=== PATIENT | female | born 1935 | race Caucasian/White ===

== ENCOUNTER 2023-03-12 21:07 | Inpatient (IN) | payer MEDICARE ==
[~2023-03-12] VITALS: Ht 167.6 cm; Wt 92.8 kg
[2023-03-12 21:14] VITALS: BP_SYST 97; PULSE 144; RESP 30; TEMP 97.8; O2SAT 98
--- NOTE | 2023-03-12 21:14 | NUR ---
Placed in room 08 . Placed on color television console monitor, blood pressure machine and pulse oximeter. To gown for exam. Side rails up. Report given to ARA MEAD
--- NOTE | 2023-03-12 21:21 | NUR ---
Patient arrived by ambulance from home. Patient was found on toilet. She had trouble breathing with audible wheezes according to paramedics. Patient called ambulance herself. Paramedics gave 2 amps albuterol. Placed on monitoring coordinator and was found to be Tachycardia with A. Fibrillation. Patient has PMH: HLD, COPD (20 years but was told she doesn't have it). Patient alert and oriented x4. On oxygen supplement. Will continue to monitor.
[2023-03-12] MEDS ORDERED: NACL 0.9% 1,000 ML IV ONE (21:45)
[2023-03-12 21:57] LABS: BASOPHILS # (AUTO) 0.1 K/uL (0.0-0.2); EOSINOPHILS # (AUTO) 0.1 K/uL (0.0-0.4); EOSINOPHILS % (AUTO) 1.6 % (0.0-4.0); HEMATOCRIT 36.2 % (36-48); HEMOGLOBIN 11.8 g/dL (12.0-16.0); LYMPHOCYTES # (AUTO) 1.2 K/uL (1.0-5.5); LYMPHOCYTES % (AUTO) 13.5 % (20.5-51.5); MEAN CORPUSCULAR HEMOGLOBIN 30 pg (27-31); MEAN CORPUSCULAR HGB CONC 33 % (32-36); MEAN CORPUSCULAR VOLUME 91 fL (79.0-98.0); MONOCYTES # (AUTO) 1.2 K/uL (0.0-1.0); MONOCYTES % (AUTO) 13.5 % (1.7-9.3); NEUTROPHILS % (AUTO) 70.4 % (40.0-70.0); PLATELET COUNT (AUTO) 252 K/uL (130-430); RED BLOOD CELL COUNT(AUTO) 3.99 MIL/uL (4.2-6.2); RED CELL DISTRIBUTION WIDTH 16.1 % (9.0-15.0); WHITE BLOOD COUNT (AUTO) 8.6 K/uL (4.8-10.8)
[2023-03-12 22:05] LABS: ANION GAP 7 (5-15); CALCIUM 8.6 mg/dL (8.4-11.0); CHLORIDE 102 mmol/L (98-107); CREATININE 0.63 mg/dL (0.55-1.30); GLUCOSE 141 mg/dL (70-99); UREA NITROGEN, BLOOD 28 mg/dL (8-21)
[2023-03-12 22:21] LABS: ALANINE AMINOTRANSFERASE 21 U/L (12-78); ALBUMIN 3.3 g/dL (3.4-4.8); ASPARTATE AMINOTRANSFERASE 15 U/L (10-37); TOTAL BILIRUBIN 0.5 mg/dL (0.0-1.0)
[2023-03-12] MEDS ORDERED: methylPREDNISolone SOD SUCC/PF 62.5 MG/ML VIAL IVP ONE (22:30)
[2023-03-12] MEDS ORDERED: METOPROLOL TARTRATE 5 MG/5 ML VIAL IVP ONE (22:45)
[2023-03-12] MEDS ORDERED: IPRATROPIUM/ALBUTEROL SULFATE 3 ML AMPUL.NEB (DUONEB) INH ONE (22:45)
[2023-03-12] MEDS ORDERED: ASPIRIN 325 MG TABLET (ECOTRIN) PO ONE (22:45)
[2023-03-12 23:10] LABS: BILIRUBIN,URINE NEGATIVE (NEGATIVE); CLARITY/URINE CLEAR (CLEAR); COLOR,URINE YELLOW (YELLOW); GLUCOSE,URINE NEGATIVE (NEGATIVE); KETONES,URINE NEGATIVE (NEGATIVE); LEUKOCYTE ESTERASE ,URINE NEGATIVE (NEGATIVE); NITRITE, URINE NEGATIVE (NEGATIVE); PROTEIN URINE NEGATIVE (NEGATIVE); UROBILINOGEN,URINE 0.2 (0.2-1.0)
[2023-03-12 23:13] LABS: BLOOD, URINE TRACE (NEGATIVE)
[2023-03-12 23:31] LABS: BACTERIA,URINE None Seen /HPF (None Seen); RBC,URINE 0-3 /HPF (0-3); WBC,URINE 0-3 /HPF (0-3)
[2023-03-13] VITALS (13 sets, daily range): BP systolic 108–135; PULSE 67–129; RESP 18–20; TEMP 96.8–98; O2SAT 94–97
--- NOTE | 2023-03-13 00:49 | NUR ---
Timur bentleyasha in [facility] - 03/13/23 at 0104 by [id number] placed on cpap
--- NOTE | 2023-03-13 01:05 | NUR ---
Clarified with Dr. Granados. Patient on Bipap.
[2023-03-13] MEDS ORDERED: METOPROLOL TARTRATE 25 MG TABLET PO ONE (01:15)
[2023-03-13] MEDS ORDERED: METOPROLOL TARTRATE 5 MG/5 ML VIAL IVP ONE ×2 (01:15→02:00)
--- NOTE | 2023-03-13 01:24 | NUR ---
Admit bed requested Patient will be admitted to care of . Admitted to TELEMETRY unit. Diagnosis COPD EXACERBATION Inpatient (Yes or No) Y Observation (Yes or No) N Orientation concerns or request close to nursing station (Yes or No) Y Covid Status NEG On vent or bipap BIPAP Isolation requirements N Needs a sitter From Home (Yes or if No enter name of facility) Y Requires Dialysis (Yes or No) N Med Rec Completed (Yes of No) YES
[2023-03-13] MEDS ORDERED: IPRATROPIUM/ALBUTEROL SULFATE 3 ML AMPUL.NEB (DUONEB) INH PRN (01:30)
[2023-03-13] MEDS ORDERED: METOPROLOL TARTRATE 5 MG/5 ML VIAL ONE (02:08)
--- NOTE | 2023-03-13 02:21 | NUR ---
Patient restless and moving around. Patient repositioned and placed on bedside commode and then back to bed. No distress noted,
--- NOTE | 2023-03-13 02:24 | NUR ---
Patient will be admitted to care of ARA Bertrand. Admitted to unit. Will go to room . Belongings list completed. Complete and up to date summary report printed. SBAR report to be given at bedside with opportunity for questions.
--- NOTE | 2023-03-13 02:27 | NUR ---
Admission Note Received patient from ER with diagnosis of COPD EXACERBATION. Initial Plan of Care discussed-patient verbalized understanding. Oriented to room, call light, pain management and safety.
--- NOTE | 2023-03-13 05:15 | NUR ---
CONSULTATION PAGED REASON FOR CONSULTATION: [facility] WAS CONSULT CALLED? Y PERSON WHO WAS NOTIFIED: ALEXIS CONSULTING PHYSICIAN: Wallace MURPHY RESIDENTIAL [employer]ERTY [employer] APPRAISER SPECIALTY: CARDIO RESIDENTIAL PROPERTY [employer] APPRAISER PHONE NUMBER: [phone] REQUESTING PHYSICIAN: Shadi ELISE
--- NOTE | 2023-03-13 06:35 | NUR ---
CLOSING NOTE PATIENT IN BED, NO S/S OF ACUTE DISTRESS. BREATHING EVEN AND UNLABORED. HOB RAISED. BIPAP ATTACHED AND OPERATING. IV SITE PATENT. ALL NEEDS MET THROUGHOUT SHIFT. FALL SAFETY PRECAUTIONS MAINTAINED THROUGHOUT SHIFT. WILL CONTINUE TO MONITOR UNTIL PATIENT CARE IS ENDORSED TO ONCOMING DAYSHIFT NURSE.
[2023-03-13] MEDS ORDERED: METOPROLOL TARTRATE 50 MG TABLET PO ONE (07:00)
--- NOTE | 2023-03-13 08:00 | NUR ---
START OF SHIFT Pt very drowsy and sleepy, has BiPap on. Dr Mueller and Dr Wilson came to bedside, pt would not wake up. Bed in low position and bed alarm on. Pt near nurses' station for close observation for needs and care. Call light within reach.
[2023-03-13] MEDS ORDERED: ONDANSETRON HCL 4 MG/2 ML VIAL IVP PRN (08:15)
[2023-03-13] MEDS ORDERED: MAGNESIUM SULFATE 50 ML IV PRN (08:15)
[2023-03-13] MEDS ORDERED: LORazepam 2 MG/ML VIAL IVP PRN (08:15)
[2023-03-13] MEDS ORDERED: ACETAMINOPHEN 325 MG TABLET PO PRN ×2 (08:15→08:45)
[2023-03-13] MEDS ORDERED: MORPHINE 2 MG/ML INJ. SYRINGE IVP PRN (08:15)
[2023-03-13] MEDS ORDERED: NALOXONE HCL 0.4 MG/ML AMP (NARCAN) IVP PRN ×2 (08:15)
[2023-03-13] MEDS ORDERED: DOCUSATE SODIUM 100 MG CAPSULE PO PRN (08:15)
[2023-03-13] MEDS ORDERED: ZOLPIDEM TARTRATE 5 MG TABLET PO PRN (08:15)
[2023-03-13] MEDS ORDERED: MUPIROCIN 2% TOPICAL OINTMENT 22 GM NS PRN (08:15)
[2023-03-13] MEDS ORDERED: POTASSIUM CHLORIDE 20 MEQ TAB.PRT.SR PO PRN (08:15)
[2023-03-13 08:16] LABS: THYROID STIMULATING HORMONE 0.06 uIu/mL (0.34-4.82)
[2023-03-13] MEDS ORDERED: HEPARIN SODIUM,PORCINE 5,000 UNITS/ML VIAL SUBCUT SCH (09:00)
[2023-03-13 09:22] LABS: PROTHROMBIN TIME 10.8 SECS (9.5-12.5)
[2023-03-13] MEDS ORDERED: *LOVENOX 1MG/KG Q24H/PHARMACY XX ONE (09:30)
--- NOTE | 2023-03-13 09:40 | NUR ---
FOUND PATIENT OFF BIPAP AND EATING. MD MURPHY AT BEDSIDE. PLACED PT ON 3 L NC. SPO2 ON NC 95%. HR 142 RN AND MD MURPHY AWARE. BIPAP AT BEDSIDE STANDBY. WILL CONTINUE TO MONITOR PT.
--- NOTE | 2023-03-13 09:55 | NUR ---
Nurse Notes: Took phone call from patients family (daughter in law Stefani) and was provided home medications list. List was provided to ARA Aldana for entry.
[2023-03-13] MEDS ORDERED: ENOXAPARIN SODIUM 100 MG/ML SYRINGE SUBCUT ONE (10:00)
[2023-03-13] MEDS: PIPERACILLIN/TAZO 3.375/DEX-IS 50 ML IV SCH ×2 (12:14→17:11)
[2023-03-13] MEDS ORDERED: METO25TA3 PO (12:37)
[2023-03-13] MEDS ORDERED: GABA-529 PO (12:37)
[2023-03-13] MEDS ORDERED: CALC-808 PO (12:37)
[2023-03-13] MEDS ORDERED: ALBU2.5V7 INH (12:37)
[2023-03-13] MEDS ORDERED: ESTR1GEL VG (12:37)
[2023-03-13] MEDS ORDERED: HYDR-3917 PO (12:37)
[2023-03-13] MEDS ORDERED: DULO20CA PO (12:37)
[2023-03-13] MEDS ORDERED: MELO-89 PO (12:37)
[2023-03-13] MEDS ORDERED: LEVO100T PO (12:37)
[2023-03-13] MEDS ORDERED: ROSU10TA2 PO (12:37)
[2023-03-13] MEDS ORDERED: FURO-150 PO (12:37)
[2023-03-13] MEDS ORDERED: ALEN10TA25 PO (12:37)
[2023-03-13] MEDS ORDERED: VIT1TABL67 PO (12:37)
--- NOTE | 2023-03-13 15:00 | NUR ---
NOTE Pt was transferred from room 121B to room 118A at this time.
[2023-03-13 17:28] LABS: FREE T4 (FREE THYROXINE) 1.9 ng/dl (0.8-1.5)
--- NOTE | 2023-03-13 18:30 | NUR ---
End of shift Pt sitting up in bed with O2 at 3L/nc. Pt's LAC IV intact and patent. Pt refused the Pure wick. Pt wants to get OOB and ambulate to restroom to have bowel movement. Refuses to BSC or bedpan. Pt is not strong enough to stand on side of bed or ambulate at this time. Unable to get urine specimen for drug screen test at this time. Pt was checked on q1' and PRN all shift for needs and care. Pt was maintained with safety precautions all shift. Call light within reach.
--- NOTE | 2023-03-13 19:15 | NUR ---
OPENING NOTE REPORT RECEIVED FROM DAYSHIFT NURSE. PATIENT RECEIVED LYING IN BED, AWAKE, ALERT, NO S/S OF ACUTE DISTRESS, DENIES PAIN. BREATHING EVEN AND UNLABORED. HOB RAISED. NASAL CANULA ATTACHED PROPERLY, ON 3L OF OXYGEN. IV SITE PATENT, NO SIGNS OF INFILTRATION OR INFECTION NOTED. CALL LIGHT WITH PATIENT. BED ALARM ON. BED IS LOCKED AND AT LOWEST POSITION. WILL CONTINUE TO MONITOR.
--- NOTE | 2023-03-13 19:48 | NUR ---
Pt. found on 3LNC displaying no signs of acute distress, denies any SOB at this time but admits to different parts of the day where she does experience some. Educated pt. on importance of oxygenation and BiPAP if needed, will follow up.
[2023-03-13] MEDS: METOPROLOL TARTRATE 50 MG TABLET PO SCH (21:05)
--- NOTE | 2023-03-13 23:00 | NUR ---
ROUNDS PATIENT IN BED, NO SIGNS OF DISCOMFORT. RESTING AT THIS TIME. CHEST RISE AND FALL EVEN BILATERALLY. ALL NEEDS MET. WILL MONITOR.
[2023-03-14] VITALS (9 sets, daily range): BP systolic 103–121; PULSE 74–88; RESP 16–20; TEMP 96.2–97.8; O2SAT 92–98
[2023-03-14] MEDS: PIPERACILLIN/TAZO 3.375/DEX-IS 50 ML IV SCH ×3 (00:09→11:22)
[2023-03-14 06:03] LABS: BARBITURATE, URINE NEGATIVE (NEG <=200); BENZODIAZEPINE, URINE NEGATIVE (NEG <=150); CANNABINOID, URINE NEGATIVE (NEG <=50); COCAINE, URINE NEGATIVE (NEG <=150); METHAMPHETAMINES SCREEN,URINE NEGATIVE (NEG <=500); OPIATE, URINE NEGATIVE (NEG <=100); PHENCYCLIDINE SCREEN,URINE NEGATIVE (NEG <=25); UR TRICYCLIC ANTIDEPRESSANTS NEGATIVE (NEG <=300); URINE AMPHETAMINE NEGATIVE (NEG <=500); URINE METHADONE NEGATIVE (NEG <=200); URINE OXYCODONE SCREEN NEGATIVE (NEG <=100); URINE PROPOXYPHENE SCREEN NEGATIVE (NEG <=300)
[2023-03-14] MEDS: MORPHINE 2 MG/ML INJ. SYRINGE IVP PRN ×2 (06:07→11:23)
--- NOTE | 2023-03-14 06:39 | NUR ---
CLOSING NOTE PATIENT IN BED, RESTING. NO S/S OF ACUTE DISTRESS. BREATHING EVEN AND UNLABORED. HOB RAISED. BIPAP ATTACHED AND OPERATING. ALL NEEDS MET THROUGHOUT SHIFT. FALL,SAFETY PRECAUTIONS MAINTAINED THROUGHOUT SHIFT. WILL CONTINUE TO MONITOR UNTIL PATIENT CARE IS ENDORSED TO ONCOMING DAYSHIFT NURSE.
[2023-03-14 07:17] LABS: BASOPHILS % (AUTO) 0.2 % (0.0-2.0); EOSINOPHILS # (AUTO) 0.1 K/uL (0.0-0.4); EOSINOPHILS % (AUTO) 0.4 % (0.0-4.0); HEMATOCRIT 36.6 % (36-48); HEMOGLOBIN 11.8 g/dL (12.0-16.0); LYMPHOCYTES # (AUTO) 0.9 K/uL (1.0-5.5); LYMPHOCYTES % (AUTO) 6.8 % (20.5-51.5); MEAN CORPUSCULAR HEMOGLOBIN 29 pg (27-31); MEAN CORPUSCULAR HGB CONC 32 % (32-36); MEAN CORPUSCULAR VOLUME 91 fL (79.0-98.0); MONOCYTES # (AUTO) 1.3 K/uL (0.0-1.0); MONOCYTES % (AUTO) 9.8 % (1.7-9.3); NEUTROPHILS # (AUTO) 11.2 K/uL (1.8-7.7); NEUTROPHILS % (AUTO) 82.8 % (40.0-70.0); PLATELET COUNT (AUTO) 250 K/uL (130-430); RED BLOOD CELL COUNT(AUTO) 4.02 MIL/uL (4.2-6.2); RED CELL DISTRIBUTION WIDTH 15.8 % (9.0-15.0); WHITE BLOOD COUNT (AUTO) 13.5 K/uL (4.8-10.8)
[2023-03-14 07:21] LABS: ANION GAP 4 (5-15); CALCIUM 8.6 mg/dL (8.4-11.0); CHLORIDE 102 mmol/L (98-107); CREATININE 0.64 mg/dL (0.55-1.30); GLUCOSE 129 mg/dL (70-99); UREA NITROGEN, BLOOD 29 mg/dL (8-21)
--- NOTE | 2023-03-14 07:30 | NUR ---
OPENING NOTES PATIENT IS RESTING, BREATHING UNLABORED ON 2L NASAL CANULA. PAIN ON ABD AND RIGHT LEG 6/10. PAIN MEDICATION IS GIVEN. NO DISTRESS, NO SOB NOTED. PURWICK IS RUNNING WELL. SAFETY PRECAUTIONS IN PLACE. BED ALARM WITHIN REACH. BED LOCKED IN LOWEST POSITION. WILL CONTINUE WITH PLAN OF CARE.
[2023-03-14] MEDS ORDERED: ENOXAPARIN SODIUM 100 MG/ML SYRINGE SUBCUT SCH (09:00)
[2023-03-14] MEDS: METOPROLOL TARTRATE 50 MG TABLET PO SCH (09:31)
--- NOTE | 2023-03-14 10:21 | NUR ---
CM: faxed transfer back to [facility] work order to [facility] dept. I requested [facility] to call nursing unit/CN with the transfer instruction. Addendum: 03/14/23 at 1557 by Jocelyne Ruth RN late entry: called Delonte sanderson [phone], unable to [facility] dt his mail box is full.
--- NOTE | 2023-03-14 12:35 | NUR ---
SPOKE TO ANGELI FROM [place] OVER THE PHONE. GAVE REPORT ON PATIENT. NURSE HAVE QUESTION ABOUT PATIENT TROPONIN LEVEL. NOTIFIED DR. MURPHY PLAN OF CARE. GAVE ANGELI MURPHY PHONE NUMBER.
--- NOTE | 2023-03-14 17:05 | NUR ---
GAVE REPORT TO JONH FROM [facility]. PATIENT BEING TRANSFERRED TO [facility]. FAMILY MEMBER LEONARDO WAS AT BEDSIDE AND IS MEETING PATIENT AT [facility]. VITAL SIGNS STABLE AND PATIENT LEFT ON 3L NC.
[2023-03-14] MEDS ORDERED: AMIODARONE HCL 200 MG TABLET PO SCH (21:00)
[2023-03-15] MEDS ORDERED: DABIGATRAN ETEXILATE MESYLATE 75 MG CAPSULE PO SCH (09:00)
== END 2023-03-14 17:05 | disposition short-term general hospital (02) | DRG 871 ==
LOC: SED 21:07 → STU 03-13 01:18
PROVIDERS: ADMIT General Practice; ATTEND General Practice
PROC: 5A09357 Assistance with Respiratory Ventilation, Less than 24 Consecutive Hours, Continuous Positive Airway Pressure (ICD-10-PCS; principal; 2023-03-13)
PROC: 5A09357 Assistance with Respiratory Ventilation, Less than 24 Consecutive Hours, Continuous Positive Airway Pressure (ICD-10-PCS; 2023-03-14)
DX: A41.9 Sepsis, unspecified organism (principal); I21.A1 Myocardial infarction type 2; J96.01 Acute respiratory failure with hypoxia; J69.0 Pneumonitis due to inhalation of food and vomit; J44.1 Chronic obstructive pulmonary disease with (acute) exacerbation; J44.0 Chronic obstructive pulmonary disease with (acute) lower respiratory infection; I48.20 Chronic atrial fibrillation, unspecified; E87.29 Other acidosis; E78.5 Hyperlipidemia, unspecified; G62.9 Polyneuropathy, unspecified; I10 Essential (primary) hypertension; Z20.822 Contact with and (suspected) exposure to COVID-19; G89.4 Chronic pain syndrome; E66.9 Obesity, unspecified; E03.9 Hypothyroidism, unspecified; Z86.73 Personal history of transient ischemic attack (TIA), and cerebral infarction without residual deficits; Z86.79 Personal history of other diseases of the circulatory system; Z79.01 Long term (current) use of anticoagulants; Z87.891 Personal history of nicotine dependence; Z95.2 Presence of prosthetic heart valve; Z68.33 Body mass index [BMI] 33.0-33.9, adult
CPT/HCPCS: 36415; 36600; 71045; 80048; 80053; 80061; 80307; 81000; 82803; 83037; 83605; 83735; 83880; 84439; 84443; 84484; 85025; 85610-TC; 87040; 87086; 93005; 93306; 94640; 94660; 94760; 96361; 96374; 96375; 96376; 97116-GP; 97530-GP; 99285; G0378; J1644; J1650; J2270; J2543; J2930; J3490; J7030

== ENCOUNTER 2024-05-19 12:28 | Emergency (ER) | payer OTHER, MEDICAID ==
[~2024-05-19] VITALS: Ht 157.5 cm; Wt 72.6 kg
[~2024-05-19 12:28] MED LIST: ALBU2.5V7 INH; ALEN10TA25 PO; CALC-808 PO; DULO20CA PO; ESTR1GEL VG; FURO-150 PO; GABA-529 PO; HYDR-3917 PO; LEVO100T PO; MELO-89 PO; METO25TA3 PO; ROSU10TA2 PO; VIT1TABL67 PO
[2024-05-19 12:36] VITALS: BP_SYST 130; PULSE 66; RESP 18; TEMP 98.2; O2SAT 99
[2024-05-19 16:02] VITALS: BP_SYST 130; PULSE 66; RESP 18; TEMP 98.2; O2SAT 99
== END 2024-05-19 16:01 | disposition home or self-care (01) ==
LOC: SED 12:28
DX: S92.535D Nondisplaced fracture of distal phalanx of left lesser toe(s), subsequent encounter for fracture with routine healing (principal); J44.9 Chronic obstructive pulmonary disease, unspecified; I10 Essential (primary) hypertension; E03.9 Hypothyroidism, unspecified; E78.5 Hyperlipidemia, unspecified; I48.91 Unspecified atrial fibrillation; Z79.899 Other long term (current) drug therapy; Z79.2 Long term (current) use of antibiotics; X58.XXXD Exposure to other specified factors, subsequent encounter
CPT/HCPCS: 99283